=== PATIENT | female | born 1965 | race Caucasian/White ===

== ENCOUNTER 2019-10-25 18:58 | Emergency (ER) | payer BC ==
--- OUTSIDE RECORDS SUMMARY | 2019-10-25 19:03 | XMS REPORT ---
:[address] [facility] Address [address] [place] [address] Care Team Providers Name Role Phone Pat Lopes Unavailable Unavailable PROBLEMS Type Condition ICD9-CM Code [id number] Code Onset Condition SNOMED Code Dates Status Problem Lichen sclerosus L90.0 Active 72050240 et atrophicus Problem Dermatitis, L30.9 Active 272078098 unspecified Problem Family history Z80.41 Active 422837677 of malignant neoplasm of ovary Problem Family history Z80.3 Active 116653652 of malignant neoplasm of breast Problem Unspecified skin R23.9 Active 067824375 changes ALLERGIES No Information ENCOUNTERS Encounter Location Date Diagnosis [address] Apr, [facility] [address] [place] [id number] Mar, [facility] [address] [place] [address] [id number] [facility] Aug, [place] [id number] [facility] Aug, [place] [id number] [address] Aug, Family history of malignant [facility] [address] [place] [address], neoplasm of breast Z80.3 [place] [id number] [facility] Aug, [place] [id number] [address] Aug, Family history of malignant [address]YN [address] [place] [address], neoplasm of breast Z80.3 [place] [id number] [facility] 103 Apr, [place] [id number] [facility] [address] [place] [address] Mar, Lichen sclerosus et OBGYN Road [address] [place], atrophicus L90.[address] [place] [id number] [address] Mar, Encounter for gynecological [address]BGYN [address] [place] [address], examination (general) [place] [id number] (routine) with abnormal findings Z01.411 ; Encounter for screening mammogram for malignant neoplasm of breast Z12.31 ; Encounter for screening for malignant neoplasm of colon Z12.11 ; Family history of malignant neoplasm of breast Z80.3 and Lichen sclerosus et atrophicus L90.[address] Feb, OBGYN [address] [place] [id number] [facility] January, [address] [place] [address] [id number] [facility] 103 Jul, [place] [id number] [facility] 103 Jul, [place] [id number] [facility] 103 Jul, [place] [id number] [facility] Jul, Family history of malignant [address] [place] [address], neoplasm of breast Z80.3 [place] [id number] and Dorsalgia, unspecified M54.[address] Apr, Dermatitis, unspecified OBGYN [address] [place], L30.9 [place] [id number] [place] [facility] [address] [place] [address] Mar, Lichen sclerosus et OBGYN [address] [place], atrophicus L90.0 [place] [id number] [facility] 103 25 May, 2018 [place] [id number] [place] [facility] [address] January, Encounter for gynecological [address]BGYN [address] [place], examination (general) [place] [id number] (routine) with abnormal findings Z01.411 ; Family history of malignant neoplasm of breast Z80.3 ; Lichen sclerosus et atrophicus L90.0 ; Encounter for screening mammogram for malignant neoplasm of breast Z12.31 and Encounter for screening for malignant neoplasm of colon Z12.11 [facility] 103 January, [place] [id number] [facility] [address] [place], [place] [address] Jul, Family history of malignant OBGYN [address] [place] [address], neoplasm of breast Z80.3 [place] [id number] and Lichen sclerosus et atrophicus L90.0 [facility] 103 Jul, Family history of malignant OBGYN [facility] neoplasm of breast Z80.3 [place] [place] [id number] [facility] 103 Mar, [place] [id number] [place] [facility] [address] Mar, Lichen sclerosus et OBGYN Road [address] [place] [address], atrophicus L90.0 [place] [id number] [place] [facility] [address] Feb, Lichen sclerosus et OBGYN Road [address] [place] [address], atrophicus L90.0 and Acute [place] [id number] vulvitis N76.2 [facility] 103 January, [place] [id number] [facility] [address] January, Encounter for gynecological OBGYN [address] [place], examination (general) [place] [id number] (routine) without abnormal findings Z01.419 ; Family history of malignant neoplasm of breast Z80.3 ; Lichen sclerosus et atrophicus L90.0 ; Encounter for screening mammogram for malignant neoplasm of breast Z12.31 ; Family history of malignant neoplasm of ovary Z80.41 and Encounter for screening for malignant neoplasm of colon Z12.11 [place] [facility] [address] [place] [address] [address] Aug, [facility] history of [facility] [address] [place] [address], neoplasm of breast Z80.3 [place] [id number] and Family history of malignant neoplasm of ovary Z80.41 [facility] 103 Jul, [place] [id number] [place] [facility] [address] [place] [address] [facility] Jul, OBGYN [address] [place] [address] [id number] [facility] 103 Jul, [place] [id number] [place] [facility] [address] [place] [address] [address] Jul, Family history of malignant OBN [address] [place] [address], neoplasm of breast Z80.3 [place] [id number] and Family history of malignant neoplasm of ovary Z80.41 [place] [facility] [address] [place] [address] January, Lichen sclerosus et OBGYN Road [address] [place] [address], atrophicus L90.0 [place] [id number] [place] [facility] [address] [place] [address] [facility] January, VULVAR LESION [address] [place] [id number] [facility] 103 Dec, Encounter for gynecological [facility] examination (general) [place], [place] [id number] (routine) with abnormal findings Z01.411 ; Encounter for screening mammogram for malignant neoplasm of breast Z12.31 ; Encounter for screening for malignant neoplasm of colon Z12.11 ; Family history of malignant neoplasm of breast Z80.3 ; Family history of malignant neoplasm of ovary Z80.41 and Unspecified skin changes R23.9 [facility] 103 Nov, [place] [id number] [facility] 103 Aug, [place] [id number] [facility] 103 May, Family history of malignant [facility] neoplasm of breast Z80.3 [place] [place] [id number] 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 OBGYN [address] [place], V72.31 ; FM HX OVARY [place] [id number] MALIGNANCY V16.41 ; FAMILY HX-BREAST MALIG V16.3 ; SCREEN MAMMOGRAM NEC V76.12 and Urgency of urination 788.[address] May, FM HX OVARY MALIGNANCY OBGYN Road [address] [place], V16.41 and FAMILY HX-BREAST [place] [id number] MALIG V16.3 [facility] 103 May, [facility] HX-BREAST [facility] V16.3 [place] [id number] [address] Nov, 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 OBGYN [address] [place], V72.31 ; FM HX OVARY [place] [id number] MALIGNANCY V16.41 ; SCREEN MAMMOGRAM NEC V76.12 and FAMILY HX-BREAST MALIG V16.3 [facility] 103 Aug, FM HX OVARY MALIGNANCY OBGYN [facility] V16.41 and FAMILY HX-BREAST [place], [place] [id number] MALIG V16.[address] Jul, FM HX OVARY MALIGNANCY OBGYN Road [address] [place], V16.41 ; FAMILY HX-BREAST [place] [id number] MALIG V16.3 ; Incontinence 788.30 ; Menometrorrhagia 626.2 and HEMATURIA NOS 599.70 [facility] 103 Jul, [place] [id number] [facility] 103 Jun, FAMILY H[facility]-BREAST [facility]IG [facility] V16.3 [place] [id number] [facility] 103 Jun, [place] [id number] [place] [facility] [address] [facility] Jun, FM HX OVARY MALIGNANCY OBGYN [address] [place], V16.41 ; FAMILY HX-BREAST [place] [id number] MALIG V16.3 ; Incontinence 788.30 ; Menometrorrhagia 626.2 and HEMATURIA NOS 599.70 [facility] 103 May, [place] [id number] [facility] [address] May, [place] [id number] [facility] 103 May, [place] [id number] [facility] 103 May, [place] [id number] [facility] 103 May, [place] [id number] [facility] 103 May, Incontinence 788.30 and [facility] Menometrorrhagia 626.2 [place] [id number] [facility] 103 May, [place] [id number] [place] [facility] [address] [facility] May, Incontinence 788.[address] [place], Menometrorrhagia 626.2 [place] [id number] [facility] 103 May, [place] [id number] [facility] 103 Apr, [place] [id number] [facility] 103 Apr, Incontinence 788.30 and [facility] Menometrorrhagia 626.2 [place], [place] [id number] [facility] 103 Apr, FEM STRESS INCONTINENCE [facility] 625.6 [place], [place] [id number] [facility] 103 Apr, [place] [id number] [place] [facility] [address] [place] [address] Mar, Incontinence 788.[address] [place] [id number] [facility] 103 Mar, [place] [id number] [facility] 103 Mar, Diabetes mellitus type II OBGYN [facility] 250.00 [place], [place] [id number] [facility] 103 Mar, Menometrorrhagia 626.2 ; OBGYN [facility] FAMILY HX-BREAST MALIG [place], [place] [id number] V16.3 and FM HX OVARY MALIGNANCY V16.41 [facility] 103 Mar, [place] [id number] [place] [facility] [address] [place] [address] Feb, Menometrorrhagia 626.2 ; OBGYN Road [address] [place] [address], FAMILY HX-BREAST MALIG [place] [id number] V16.3 and FM HX OVARY MALIGNANCY V16.41 [facility] 103 January, Menometrorrhagia 626.2 [place] [id number] [facility] 103 January, Menometrorrhagia 626.2 [place] [id number] [facility] 103 Dec, [place] [id number] [facility] 103 Dec, [place] [id number] [place] [facility] [address] [place] [address] Dec, Menometrorrhagia 626.2 ; OBGYN Road [address] [place], URINARY INCONTINENCE NOS [place] [id number] 788.30 ; FAMILY HX-BREAST MALIG V16.3 and FM HX OVARY MALIGNANCY V16.41 [facility] 103 08 Dec, 2012 [place] [id number] [facility] 103 Dec, [place] [id number] [address] Dec, Menometrorrhagia [address]26.[address] [place] [address] [id number] [facility] 103 Dec, Menometrorrhagia 626.2 [place] [id number] [facility] 103 Dec, Menometrorrhagia 626.2 ; FM OBGYN [facility] HX OVARY MALIGNANCY V16.41 [place], [place] [id number] and IUD SURVEILLANCE V25.[address] Nov, 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 EXAMINATION OBGYN Road [address] [place] [address], V72.31 ; Menometrorrhagia [place] [id number] 626.2 ; PAP SMEAR W/O ORGANIC CHEMISTRY TEACHER EXAM V76.2 ; SCREEN MAMMOGRAM NEC V76.12 ; FAMILY HX-BREAST MALIG V16.3 ; FM HX OVARY MALIGNANCY V16.41 and URINARY INCONTINENCE NOS 788.[address] Dec, FM HX OVARY MALIGNANCY OBGYN Road [address] [place], V16.41 and FAMILY HX-BREAST [place] [id number] MALIG V16.[address] Sep, FM HX OVARY MALIGNANCY OBGYN Road [address] [place], V16.41 and FAMILY HX-BREAST [place] [id number] MALIG V16.3 [facility] 103 Sep, [place] [id number] [facility] 103 Aug, FM HX OVARY MALIGNANCY OBGYN [facility] V16.41 and FAMILY HX-BREAST [place], [place] [id number] MALIG V16.3 IMMUNIZATIONS No Known Immunizations SOCIAL HISTORY Never Assessed REASON FOR REFERRAL FUNCTIONAL STATUS PLAN OF CARE VITAL SIGNS MEDICATIONS Unknown Medications PROCEDURES No Known procedures RESULTS No Results REASON FOR VISIT No show Insurance Providers [facility] Member Patient Patient Patient Patient Patient Subscriber Subscriber Subscriber Group Insurance Plan Plan Plan Plan ID Relationship Address Phone Name Date of ID Name Date of No Type Insurance Insurance Insurance Coverage to Subscriber Address Phone Name Dates Blue [phone] Blue self Susan [id number] Cross/Blue [id number] 16 Cross/Blue [place] [employer] [place] [facility] [place] [address] Blue Cross [phone] Blue Cross self Susan 1965 [id number] Blue [id number] 89 Blue [place] [employer] [place] [facility] [place] [address] Excellus [phone] Excellus self Susan 1965 [id number] Blue [id number] 89 Blue [place] Cross/Blue ods Shield [address] Shield Excellus [phone] Excellus self Susan 1965 [id number] Blue [id number] 89 Blue [place] Cross/[place] o[place] Shield [address] Shield [employer] [phone] Excellus self Susan 1965 [id number] Blue [id number] 89 Blue [place] Cross/Blue o[place] Shield [address] Shield MEDICAL (GENERAL) HISTORY Type Description Date Medical History Asthma Medical History DM2 Medical History Sleep apnea Medical History Lichen sclerosis Medical History hypothyroidism Medical History Anemia Medical History anxiety Medical History depression Medical History Peripheral atopic dermatitis Surgical History in office hysteroscopy, EMB 01/2013 Surgical History LTH/BSO/cystoscopy/ [facility] TOT 06/17/13 Surgical History colonoscopy 01/2015 Hospitalization History Childbirth 1993,1996,1997
--- OUTSIDE RECORDS SUMMARY | 2019-10-25 19:03 | XMS REPORT ---
:[address] [facility] Address [address] [place] [address] Care Team Providers Name Role Phone Pat Lopes Unavailable Unavailable PROBLEMS Type Condition ICD9-CM Code FEM19-DI Code Onset Condition SNOMED Code Dates Status Problem Lichen sclerosus L90.0 Active 59475608 et atrophicus Problem Dermatitis, L30.9 Active 796723987 unspecified Problem Family history Z80.41 Active [id number] of malignant neoplasm of ovary Problem Family history Z80.3 Active [id number] of malignant neoplasm of breast Problem Unspecified skin R23.9 Active [id number] changes ALLERGIES No Information ENCOUNTERS Encounter Location Date Diagnosis [address] Apr, [facility] [address] [place] [id number] Mar, [facility] [address] [place] [address] [id number] [facility] Aug, [place] [id number] [facility] Aug, [place] [id number] [address] Aug, Family history of malignant [facility] [address] [place] [address], neoplasm of breast Z80.3 [place] [id number] [facility] Aug, [place] [id number] [address] Aug, Family history of malignant OBGYN [address] [place] [address], neoplasm of breast Z80.3 [place] [id number] [facility] 103 Apr, [place] [id number] [facility] [address] [place] [address] Mar, Lichen sclerosus et OBGYN Road [address] [place], atrophicus L90.0 [place] [id number] [address] Mar, Encounter for gynecological OBGYN [address] [place] [address], examination (general) [place] [id number] (routine) with abnormal findings Z01.411 ; Encounter for screening mammogram for malignant neoplasm of breast Z12.31 ; Encounter for screening for malignant neoplasm of colon Z12.11 ; Family history of malignant neoplasm of breast Z80.3 and Lichen sclerosus et atrophicus L90.[address] Feb, OBGYN [address] [place] [address] [id number] [facility] January, OBGYN Road [address] [place] [address] [id number] [facility] 103 Jul, [place] [id number] [place] 103 Jul, [place] [id number] [facility] 103 Jul, [place] [id number] [facility] Jul, Family history of malignant OBGYN [address] [place] [address], neoplasm of breast Z80.3 [place] [id number] and Dorsalgia, unspecified M54.[address] Apr, Dermatitis, unspecified OBGYN [address] [place], L30.9 [place] [id number] [place] [facility] [address] [place] [address] Mar, Lichen sclerosus et OBGYN Road [address] [place], atrophicus L90.0 [place] [id number] [place] [facility] 103 25 May, 2018 [place]BG[place] [id number] [place] [facility] [address] January, Encounter for gynecological OBGYN [address] [place], examination (general) [place] [id number] (routine) with abnormal findings Z01.411 ; Family history of malignant neoplasm of breast Z80.3 ; Lichen sclerosus et atrophicus L90.0 ; Encounter for screening mammogram for malignant neoplasm of breast Z12.31 and Encounter for screening for malignant neoplasm of colon Z12.[address] [facility] 103 January, [place]BG[place] [id number] [facility] [address] [place], [place] [address] Jul, Family history of malignant OBGYN [address] [place] [address], neoplasm of breast Z80.3 [place] [id number] and Lichen sclerosus et atrophicus L90.0 [place] [facility] Jul, Family history of malignant OBGYN [facility] neoplasm of breast Z80.[address] [place] [id number] [facility] 103 Mar, [place] [id number] [place] [facility] [address] Mar, Lichen sclerosus et OBGYN Road [address] [place] [address], atrophicus L90.0 [place] [id number] [place] [facility] [address] Feb, Lichen sclerosus et OBGYN Road [address] [place] [address], atrophicus L90.0 and Acute [place] [id number] vulvitis N76.[address] [facility] 103 January, [place] [id number] [facility] [address] January, Encounter for gynecological OBGYN [address] [place], examination (general) [place] [id number] (routine) without abnormal findings Z01.419 ; Family history of malignant neoplasm of breast Z80.3 ; Lichen sclerosus et atrophicus L90.0 ; Encounter for screening mammogram for malignant neoplasm of breast Z12.31 ; Family history of malignant neoplasm of ovary Z80.41 and Encounter for screening for malignant neoplasm of colon Z12.11 [place] [facility] [address] [place] [address] [place] Aug, Family history of malignant [facility] [address] [place] [address], neoplasm of breast Z80.3 [place] [id number] and Family history of malignant neoplasm of ovary Z80.41 [facility] 103 Jul, OBG[place] [id number] [place] [facility] [address] [place] [address] [facility] Jul, OBGYN Road [address] [place] [address] [id number] [facility] 103 Jul, [place] [id number] [place] [facility] [address] [place] [address] [place] Jul, Family history of malignant OBN Road [address] [place] [address], neoplasm of breast Z80.3 [place] [id number] and Family history of malignant neoplasm of ovary Z80.41 [place] [facility] [address] [place] [address] January, Lichen sclerosus et OBGYN Road [address] [place] [address], atrophicus L90.0 [place] [id number] [place] [facility] [address] [place] [address] [facility] January, VULVAR LESION [address] [place] [id number] [facility] 103 Dec, Encounter for gynecological [facility] examination (general) [place], [place] [id number] (routine) with abnormal findings Z01.411 ; Encounter for screening mammogram for malignant neoplasm of breast Z12.31 ; Encounter for screening for malignant neoplasm of colon Z12.11 ; Family history of malignant neoplasm of breast Z80.3 ; Family history of malignant neoplasm of ovary Z80.41 and Unspecified skin changes R23.9 [facility] 103 Nov, [place] [id number] [place] [facility] 103 Aug, [place] [id number] [facility] 103 May, Family history of malignant [facility] neoplasm of breast Z80.3 [place] [id number] [facility] May, FM HX OVARY MALIGNANCY OBGYN Road [address] [place], V16.41 and FAMILY HX-BREAST [place] [id number] MALIG V16.[address] Nov, 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 OBGYN [address] [place], V72.31 ; FM HX OVARY [place] [id number] MALIGNANCY V16.41 ; FAMILY HX-BREAST MALIG V16.3 ; SCREEN MAMMOGRAM NEC V76.12 and Urgency of urination 788.[address] May, FM HX OVARY MALIGNANCY OBGYN Road [address] [place], V16.41 and FAMILY HX-BREAST [place] [id number] MALIG V16.3 [facility] 103 May, FAMILY HX-BREAST MALIG [facility] V16.3 [place] [id number] [address] Nov, 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 OBGYN Road [address] [place], V72.31 ; FM HX OVARY [place] [id number] MALIGNANCY V16.41 ; SCREEN MAMMOGRAM NEC V76.12 and FAMILY HX-BREAST MALIG V16.3 [facility] O[facility]YN 103 Aug, FM HX OVARY MALIGNANCY OBGYN [facility] V16.41 and FAMILY HX-BREAST [place], [place] [id number] MALIG V16.[address] Jul, FM HX OVARY MALIGNANCY OBGYN Road [address] [place], V16.41 ; FAMILY HX-BREAST [place] [id number] MALIG V16.3 ; Incontinence 788.30 ; Menometrorrhagia 626.2 and HEMATURIA NOS 599.70 [facility] 103 Jul, [place] [id number] [facility] 103 Jun, FAMILY HX-BREAST [facility]IG [facility] V16.3 [place] [id number] [facility] 103 Jun, [place] [id number] [place] [facility] [address] [facility] Jun, FM HX OVARY MALIGNANCY OBGYN Road [address] [place], V16.41 ; FAMILY HX-BREAST [place] [id number] MALIG V16.3 ; Incontinence 788.30 ; Menometrorrhagia 626.2 and HEMATURIA NOS 599.70 [place] [facility] 103 May, [place] [id number] [facility] [address] May, [place], [place] [id number] [place] [facility] 103 May, [place] [id number] [place] [facility] 103 May, [place] [id number] [place] [facility] 103 May, [place] [id number] [place] [facility] 103 May, Incontinence 788.30 and [facility] Menometrorrhagia 626.2 [place] [id number] [place] [facility] 103 May, [place] [id number] [place] [facility] [address] [facility] May, Incontinence [address]88.[address] [place], Menometrorrhagia 626.2 [place] [id number] [place] [facility] 103 May, [place] [id number] [place] [facility] 103 Apr, [place] [id number] [place] [facility] 103 Apr, Incontinence 788.30 and [facility] Menometrorrhagia 626.2 [place] [id number] [place] [facility] 103 Apr, FEM STRESS INCONTINENCE [facility] 625.6 [place] [id number] [place] [facility] 103 Apr, [place] [id number] [place] [facility] [address] [place] [address] Mar, Incontinence [address]88.[address] [place] [id number] [place] [facility] 103 Mar, [place] [id number] [place] [facility] 103 Mar, Diabetes mellitus type II OBGYN [facility] 250.00 [place] [id number] [place] [facility] 103 Mar, Menometrorrhagia 626.2 ; OBGYN [facility] FAMILY HX-BREAST MALIG [place] [id number] V16.3 and FM HX OVARY MALIGNANCY V16.41 [place] [facility] 103 Mar, [place] [id number] [place] [facility] [address] [place] [address] Feb, Menometrorrhagia 626.2 ; OBGYN Road [address] [place] [address], FAMILY HX-BREAST MALIG [place] [id number] V16.3 and FM HX OVARY MALIGNANCY V16.41 [place] [facility] 103 January, Menometrorrhagia 626.2 O[place] [id number] [place] [facility] 103 January, Menometrorrhagia 626.2 [place] [id number] [place] [facility] 103 Dec, [place] [id number] [place] [facility] 103 Dec, [place] [id number] [place] [facility] [address] [place] [address] Dec, Menometrorrhagia 626.2 ; OBGYN [address] [place], URINARY INCONTINENCE NOS [place] [id number] 788.30 ; FAMILY HX-BREAST MALIG V16.3 and FM HX OVARY MALIGNANCY V16.41 [facility] O[facility]YN 103 08 Dec, 2012 [place] [id number] [facility] 103 Dec, OBG[place] [id number] [address] Dec, Menometrorrhagia [address] [place] [address] [id number] [facility] 103 Dec, Menometrorrhagia 626.2 OBGYN [place] [id number] [facility] 103 Dec, Menometrorrhagia 626.2 ; FM OBGYN [facility] HX OVARY MALIGNANCY V16.41 [place], [place] [id number] and IUD SURVEILLANCE V25.[address] Nov, 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 OBGYN Road [address] [place] [address], V72.31 ; Menometrorrhagia [place] [id number] 626.2 ; PAP SMEAR W/O PHOTOVOLTAIC POWER SYSTEMS ENGINEER EXAM V76.2 ; SCREEN MAMMOGRAM NEC V76.12 ; FAMILY HX-BREAST MALIG V16.3 ; FM HX OVARY MALIGNANCY V16.41 and URINARY INCONTINENCE NOS 788.[address] Dec, FM HX OVARY MALIGNANCY OBGYN Road [address] [place], V16.41 and FAMILY HX-BREAST [place] [id number] MALIG V16.[address] Sep, FM HX OVARY MALIGNANCY OBGYN Road [address] [place], V16.41 and FAMILY HX-BREAST [place] [id number] MALIG V16.3 [facility] 103 Sep, O[place] [id number] [facility] 103 Aug, FM HX OVARY MALIGNANCY OBGYN [facility] V16.41 and FAMILY HX-BREAST [place], [place] [id number] MALIG V16.3 IMMUNIZATIONS No Known Immunizations SOCIAL HISTORY Never Assessed REASON FOR REFERRAL FUNCTIONAL STATUS PLAN OF CARE VITAL SIGNS MEDICATIONS Unknown Medications PROCEDURES No Known procedures RESULTS No Results REASON FOR VISIT n/s to appt. - Could not leave message 08/27/2019 Insurance Providers [facility] Member Patient Patient Patient Patient Patient Subscriber Subscriber Subscriber Group Insurance Plan Plan Plan Plan ID Relationship Address Phone Name Date of ID Name Date of No Type Insurance Insurance Insurance Coverage to Subscriber Address Phone Name Dates Excell[employer] [phone] Excellus self Susan 1965 [id number] Blue [id number] 89 [place] Shield [id number] Shield Excellus [phone] Excell[employer] self Susan 1965 [id number] Blue [id number] 89 [place] Cross/[place] Shield 73752 Shield Excellus [phone] [employer] self Susan 1965 [id number] Blue [id number] 89 [place] Shield [address] Shield Blue [phone] Blue self Susan [id number] Cross/Blue 15502 16 Cross/Blue [place] 3 Shield [facility] [address] Blue Cross [phone] Blue Cross self Susan [id number] Blue 38838 89 Blue [place] 9 Shield [facility] [place] [address] MEDICAL (GENERAL) HISTORY Type Description Date Medical [...]
--- OUTSIDE RECORDS SUMMARY | 2019-10-25 19:03 | XMS REPORT ---
:1965 Author Name Chastity Campos Address [address] [place] [address] Care Team Providers Name Role Phone Chastity Campos Unavailable Unavailable PROBLEMS Type Condition ICD9-CM Code XPI98-[id number] Code Onset Condition SNOMED Code Dates Status Problem Lichen sclerosus L90.0 Active 66762238 et atrophicus Problem Dermatitis, L30.9 Active 891806622 unspecified Problem Family history Z80.41 Active 985866706 of malignant neoplasm of ovary Problem Family history Z80.3 Active 541587702 of malignant neoplasm of breast Problem Unspecified skin R23.9 Active 700067546 changes ALLERGIES No Known Allergies ENCOUNTERS Encounter Location Date Diagnosis [address] Apr, [facility] [address] [place] [id number] Mar, [facility] [address] [place] [address] [id number] [facility] Aug, OBG[place] [id number] [facility] 103 Aug, OBGYN [place], [place] [id number] [address] Aug, Family history of malignant [facility] [address] [place] [address], neoplasm of breast Z80.3 [place] [id number] [facility] Aug, OBG[place] [id number] [address] Aug, Family history of malignant [address]BGYN [address] [place] [address], neoplasm of breast Z80.3 [place] [id number] [facility] Apr, [place] [id number] [facility] [address] [place] [address] Mar, Lichen sclerosus et OBGYN Road [address] [place] [address], atrophicus L90.0 [place] [id number] [address] Mar, Encounter for gynecological OBGYN [address] [place] [address], examination (general) [place] [id number] (routine) with abnormal findings Z01.411 ; Encounter for screening mammogram for malignant neoplasm of breast Z12.31 ; Encounter for screening for malignant neoplasm of colon Z12.11 ; Family history of malignant neoplasm of breast Z80.3 and Lichen sclerosus et atrophicus L90.[address] Feb, OBGYN [address] [place] [id number] [facility] January, [address] [place] [address] [id number] [facility] Jul[place] [id number] [facility] 103 Jul[place] [id number] [facility] Jul, [place] [id number] [facility] Jul, Family history of malignant [address]BGYN [address] [place] [address], neoplasm of breast Z80.3 [place] [id number] and Dorsalgia, unspecified M54.[address] [facility] Apr, Dermatitis, unspecified [address] [place], L30.9 [place] [id number] [facility] [address] [place] [address] Mar, Lichen sclerosus et OBGYN Road [address] [place] [address], atrophicus L90.0 [place] [id number] [facility] January, OBG[place] [id number] [place] [facility] [address] January, Encounter for gynecological [address]BGYN [address] [place] [address], examination (general) [place] [id number] (routine) with abnormal findings Z01.411 ; Family history of malignant neoplasm of breast Z80.3 ; Lichen sclerosus et atrophicus L90.0 ; Encounter for screening mammogram for malignant neoplasm of breast Z12.31 and Encounter for screening for malignant neoplasm of colon Z12.11 [facility] January, OBGYN [place] [id number] [place] [facility] [address] [place], [place] [address]er Jul, Family history of malignant OBGYN [address] [place] [address], neoplasm of breast Z80.3 [place] [id number] and Lichen sclerosus et atrophicus L90.0 [facility] 103 Jul, Family history of malignant OBGYN [facility] neoplasm of breast Z80.3 [place], [place] [id number] [facility] Mar, OBG[place], [place] [id number] [facility] [facility] [address] Mar, Lichen sclerosus et OBGYN Road [address] [place] [address], atrophicus L90.0 [place] [id number] [place] [facility] [address] Feb, Lichen sclerosus et OBGYN Road [address] [place] [address], atrophicus L90.0 and Acute [place] [id number] vulvitis N76.2 [facility] January, [place]BG[place] [id number] [facility] [address] January, Encounter for gynecological OBGYN [address] [place], examination (general) [place] [id number] (routine) without abnormal findings Z01.419 ; Family history of malignant neoplasm of breast Z80.3 ; Lichen sclerosus et atrophicus L90.0 ; Encounter for screening mammogram for malignant neoplasm of breast Z12.31 ; Family history of malignant neoplasm of ovary Z80.41 and Encounter for screening for malignant neoplasm of colon Z12.11 [place] [facility] [address] [place] [address] [facility] Aug, [facility] [address] [place] [address], neoplasm of breast Z80.3 [place] [id number] and Family history of malignant neoplasm of ovary Z80.41 [facility] Jul, OBG[place] [id number] [place] [facility] [address] [place], [place] [address] Jul, OBGYN Road [address] [place] [address] [id number] [facility] Jul, [place] [id number] [place] [facility] [address] [place], [place] [address]er Jul, Family history of malignant OBN [address] [place] [address], neoplasm of breast Z80.3 [place] [id number] and Family history of malignant neoplasm of ovary Z80.41 [place] [facility] [address] [place] [address] January, Lichen sclerosus et OBGYN Road [address] [place] [address], atrophicus L90.0 [place] [id number] [place] [facility] [address] [place], [place] [address]er January, VULVAR LESION [address] [place] [address] [id number] [facility] 103 Dec, Encounter for gynecological [facility] examination (general) [place], [place] [id number] (routine) with abnormal findings Z01.411 ; Encounter for screening mammogram for malignant neoplasm of breast Z12.31 ; Encounter for screening for malignant neoplasm of colon Z12.11 ; Family history of malignant neoplasm of breast Z80.3 ; Family history of malignant neoplasm of ovary Z80.41 and Unspecified skin changes R23.9 [facility] Nov, [place] [id number] [facility] Aug, [place] [id number] [facility] 103 May, Family history of malignant [facility] neoplasm of breast Z80.3 [place] [id number] [address] May, FM HX OVARY MALIGNANCY OBGYN Road [address] [place], V16.41 and FAMILY HX-BREAST [place] [id number] MALIG V16.[address] Nov, 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 BUSHING PRESS 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 EXAMINATION [address]BGYN [address] [place], V72.31 ; FM HX OVARY [place] [id number] MALIGNANCY V16.41 ; FAMILY HX-BREAST MALIG V16.3 ; SCREEN MAMMOGRAM NEC V76.12 and Urgency of urination 788.[address] May, FM HX OVARY MALIGNANCY OBGYN Road [address] [place], V16.41 and FAMILY HX-BREAST [place] [id number] MALIG V16.3 [facility] 103 May, FAMILY HX-BREAST [facility]IG [facility] V16.3 [place], [place] [id number] [address] Nov, ROUTINE BUSHING PRESS OPERATOR EXAMINATION OBGYN [address] [place], V72.31 ; FM HX OVARY [place] [id number] MALIGNANCY V16.41 ; SCREEN MAMMOGRAM NEC V76.12 and FAMILY HX-BREAST MALIG V16.3 [facility] 103 Aug, FM HX OVARY MALIGNANCY OBGYN [facility] V16.41 and FAMILY HX-BREAST [place], [place] [id number] MALIG V16.[address] Jul, FM HX OVARY MALIGNANCY OBGYN Road [address] [place], V16.41 ; FAMILY HX-BREAST [place] [id number] MALIG V16.3 ; Incontinence 788.30 ; Menometrorrhagia 626.[address] [facility] 103 Jul, [place] [id number] [facility] 103 Jun, FAMILY HX-BREAST MALIG [facility] V16.3 [place] [id number] [facility] 103 Jun, [place] [id number] [place] [facility] [address] Jun, FM HX OVARY MALIGNANCY OBGYN Road [address] [place], V16.41 ; FAMILY HX-BREAST [place] [id number] MALIG V16.3 ; Incontinence 788.30 ; Menometrorrhagia 626.2 and HEMATURIA NOS 599.70 [facility] May, [place] [id number] [facility] [address] May, [place] [id number] [facility] May, [place] [id number] [facility] May, [place] [id number] [facility] May, [place] [id number] [facility] 103 May, Incontinence 788.30 [facility] Menometrorrhagia 626.2 [place] [id number] [facility] 103 May, [place] [id number] [place] [facility] [address] [facility] May, Incontinence [address]88.[address] [place], Menometrorrhagia 626.2 [place] [id number] [facility] 103 May, [place] [id number] [facility] 103 Apr, [place] [id number] [facility] 103 Apr, Incontinence 788.30 and [facility] Menometrorrhagia 626.2 [place], [place] [id number] [facility] 103 Apr, FEM STRESS INCONTINENCE [facility] 625.6 [place] [id number] [facility] Apr, [place] [id number] [place] [facility] [address] [place] [address] Mar, Incontinence [address]88.[address] [place], [place] [id number] [facility] 103 Mar, [place] [id number] [facility] 103 Mar, Diabetes mellitus type II OBN [facility] 250.00 [place] [id number] [facility] 103 Mar, Menometrorrhagia 626.2 ; OBGYN [facility] FAMILY HX-BREAST MALIG [place], [place] [id number] V16.3 and FM HX OVARY MALIGNANCY V16.41 [facility] 103 Mar, [place] [id number] [facility] [facility] [address] [place] [address] Feb, Menometrorrhagia 626.2 ; OBGY Road [address] [place] [address], FAMILY HX-BREAST MALIG W[place] [id number] V16.3 and FM HX OVARY MALIGNANCY V16.41 [facility] 103 January, Menometrorrhagia 626.2 [place] [id number] [facility] 103 January, Menometrorrhagia 626.2 [place] [id number] [facility] 103 Dec, [place], [place] [id number] [facility] Dec, [place], [place] [id number] [place] [facility] [address] [place] [address] Dec, Menometrorrhagia 626.2 ; OBGYN [address] [place], URINARY INCONTINENCE NOS [place] [id number] 788.30 ; FAMILY HX-BREAST MALIG V16.3 and FM HX OVARY MALIGNANCY V16.41 [facility] O[facility]YN 103 08 Dec, 2012 OBG[place] [id number] [facility] 103 Dec, OBG[place] [id number] [address] Dec, Menometrorrhagia [address] [place] [address] [id number] [facility] 103 Dec, Menometrorrhagia 626.2 O[place], [place] [id number] [facility] 103 Dec, Menometrorrhagia 626.2 ; FM OBGYN [facility] HX OVARY MALIGNANCY V16.41 [place], [place] [id number] and IUD SURVEILLANCE V25.[address] Nov, ROUTINE BUSHING PRESS OPERATOR EXAMINATION OBGYN Road [address] [place] [address], V72.31 ; Menometrorrhagia [place] [id number] 626.2 ; PAP SMEAR W/O BUSHING PRESS OPERATOR EXAM V76.2 ; SCREEN MAMMOGRAM NEC V76.12 ; FAMILY HX-BREAST MALIG V16.3 ; FM HX OVARY MALIGNANCY V16.41 and URINARY INCONTINENCE NOS 788.[address] Dec, FM HX OVARY MALIGNANCY OBGYN Road [address] [place], V16.41 and FAMILY HX-BREAST [place] [id number] MALIG V16.[address] Sep, FM HX OVARY MALIGNANCY OBGYN Road [address] [place], V16.41 and FAMILY HX-BREAST [place] [id number] MALIG V16.3 [facility] 103 Sep, OBG[place], [place] [id number] [facility] 103 Aug, FM HX OVARY MALIGNANCY OBGYN [facility] V16.41 and FAMILY HX-BREAST [place], [place] [id number] MALIG V16.3 IMMUNIZATIONS No Known Immunizations SOCIAL HISTORY Never Assessed REASON FOR REFERRAL FUNCTIONAL STATUS PLAN OF CARE Activity Details Follow Up annual in March Reason: VITAL SIGNS Height 63.5 in 2019-09-03 Weight 202 lbs 2019-09-03 BMI 35.22 kg/m2 2019-09-03 Blood pressure systolic 138 mm Hg 2019-09-03 Blood pressure diastolic 84 mm Hg 2019-09-03 MEDICATIONS Medication Instructions Dosage Frequency Start End Duration Status Date Date clobetasol applied 1 jossy 90 days Active topical 0.05% topically once weekly biotin 10 mg orally once a 1 tab(s) 24h 30 day(s) Active day Probiotic Formula orally once a 1 cap(s) 24h Active - day Zyrtec 10 mg Oral qd 1 tab 24h 30 days Active multivitamin orally once a 1 tab(s) 24h Active Multiple Vitamins day sertraline 50 mg orally once a 3 tab(s) 24h Active day CPAP mask Active Vitamin B-12 500 orally 1 QD Active mg Vitamin D3 1000 orally once a 1 tab(s) 24h Active intl units day levothyroxine 25 orally once a 1 tab(s) 24h Active mcg (0.025 mg) day Metformin 500 mg Oral bid 1 tab 12h 30 days Active PROCEDURES No Known procedures RESULTS No Results REASON FOR VISIT 6 month CBE Insurance Providers Formerly [facility] Patient Patient Patient Patient Patient Subscriber Subscriber Subscriber Group Insurance Plan Plan Plan Plan ID Relationship Address Phone Name Date of ID Name Date of No Type Insurance Insurance Insurance Coverage to Subscriber Address Phone Name Dates [address]us [address] Excellus self Susan 1965 [id number] Blue [id number] 89 [place] Shield [address] Shield Blue [address] - Blue self Susan 1965 [id number] Cross/Blue [id number] 16 Cross/Blue [place] [address] Excellus [address] Excellus self Susan 1965 [id number] Blue 08190 89 Blue [place] 2 [place] Shield [address] Shield Excellus [address] Excellus self Susan 1965 [id number] Blue [id number] 89 Blue [place] 9 [place] Shield [address] Shield Blue Cross [phone] Blue Cross self Susan [id number] Blue 31943 89 Blue [place] 9 [facility] [address] MEDICAL (GENERAL) HISTORY Type Description Date Medical [...]
--- OUTSIDE RECORDS SUMMARY | 2019-10-25 19:03 | XMS REPORT ---
:[address] [facility] OBGYN Address [address] [place] [address] Care Team Providers Name Role Phone Pat Lopes Unavailable Unavailable PROBLEMS Type Condition ICD9-CM Code [id number] Code Onset Condition SNOMED Code Dates Status Problem Lichen sclerosus L90.0 Active 00439686 et atrophicus Problem Dermatitis, L30.9 Active 189134133 unspecified Problem Family history Z80.41 Active 030627161 of malignant neoplasm of ovary Problem Family history Z80.3 Active [id number] of malignant neoplasm of breast Problem Unspecified skin R23.9 Active [id number] changes ALLERGIES No Information ENCOUNTERS Encounter Location Date Diagnosis [address] Apr, [facility] [address] [place] [id number] Mar, [facility] [address] [place] [id number] [facility] 103 Aug, Family history of malignant OBGYN [facility] neoplasm of breast Z80.3 [place], [place] [id number] [facility] 103 Aug, OBGYN [place] [id number] [address] Aug, Family history of malignant OBGYN Road [address] [place] [address], neoplasm of breast Z80.[address] [place] [id number] [facility] Aug, O[place] [id number] [facility] [address] [place] [address] Aug, Family history of malignant OBGYN Road [address] [place] [address], neoplasm of breast Z80.[address] [place] [id number] [facility] 103 Apr, [place] [id number] [facility] [address] [place], [place] [address] Mar, Lichen sclerosus et OBGYN Road [address] [place] [address], atrophicus L90.0 [place] [id number] [place] [facility] [address] [place] [address] Mar, Encounter for gynecological OBGYN Road [address] [place] [address], examination (general) [place] [id number] (routine) with abnormal findings Z01.411 ; Encounter for screening mammogram for malignant neoplasm of breast Z12.31 ; Encounter for screening for malignant neoplasm of colon Z12.11 ; Family history of malignant neoplasm of breast Z80.3 and Lichen sclerosus et atrophicus L90.0 [facility] [address] [place] [address] [facility] Feb, OBGYN Road [address] [place] [id number] [facility] January, [address] [place] [id number] [facility] 103 12 Jul, 2018 [place], [place] [id number] [facility] 103 Jul, [place] [id number] [facility] 103 Jul, [place] [id number] [facility] Jul, Family history of malignant OBGYN [address] [place] [address], neoplasm of breast Z80.3 [place] [id number] and Dorsalgia, unspecified M54.9 [facility] Apr, Dermatitis, unspecified OBGYN [address] [place], L30.9 [place] [id number] [facility] Mar, Lichen sclerosus et OBGYN Road [address] [place] [address], atrophicus L90.[address] [place] [id number] [facility] 103 January, OBGYN [place] [id number] [place] [facility] [address] [facility] January, Encounter for gynecological OBGYN Road [address] [place] [address], examination (general) [place] [id number] (routine) with abnormal findings Z01.411 ; Family history of malignant neoplasm of breast Z80.3 ; Lichen sclerosus et atrophicus L90.0 ; Encounter for screening mammogram for malignant neoplasm of breast Z12.31 and Encounter for screening for malignant neoplasm of colon Z12.11 [place] [facility] 103 January, OBGYN [place] [id number] [facility] Jul, Family history of malignant OBGYN Road [address] [place] [address], neoplasm of breast Z80.3 [place] [id number] and Lichen sclerosus et atrophicus L90.0 [place] [facility] 103 Jul, Family history of malignant OBGYN [facility] neoplasm of breast Z80.3 [place], [place] [id number] [facility] 103 Mar, OBGYN [place] [id number] [facility] [address] [facility] Mar, Lichen sclerosus et OBGYN Road [address] [place] [address], atrophicus L90.0 [place] [id number] [place] [address] [facility] Feb, Lichen sclerosus et OBGYN Road [address] [place] [address], atrophicus L90.0 and Acute [place] [id number] vulvitis N76.2 [facility] [facility] 103 January, OBG[place] [id number] [place] [facility] [address] [facility] January, Encounter for gynecological OBGYN [address] [place], examination (general) [place] [id number] (routine) without abnormal findings Z01.419 ; Family history of malignant neoplasm of breast Z80.3 ; Lichen sclerosus et atrophicus L90.0 ; Encounter for screening mammogram for malignant neoplasm of breast Z12.31 ; Family history of malignant neoplasm of ovary Z80.41 and Encounter for screening for malignant neoplasm of colon Z12.11 [place] [facility] 15 Aug, 2016 Family history of malignant [facility] [address] [place] [address], neoplasm of breast Z80.3 [place] [id number] and Family history of malignant neoplasm of ovary Z80.[address] [facility] 103 Jul, [place] [id number] [facility] [facility] Jul, OBGYN Road [address] [place] [id number] [facility] 103 Jul, [place] [id number] [facility] [address] Jul, Family history of malignant [facility] [address] [place] [address], neoplasm of breast Z80.3 [place] [id number] and Family history of malignant neoplasm of ovary Z80.41 [facility] [address] January, Lichen sclerosus et [facility] [address] [place] [address], atrophicus L90.0 [place] [id number] [place] [facility] [address] [place] [address] [facility] January, VULVAR LESION 624.9 [facility] [address] [place] [id number] [facility] 103 Dec, Encounter for gynecological [facility] examination (general) [place], [place] [id number] (routine) with abnormal findings Z01.411 ; Encounter for screening mammogram for malignant neoplasm of breast Z12.31 ; Encounter for screening for malignant neoplasm of colon Z12.11 ; Family history of malignant neoplasm of breast Z80.3 ; Family history of malignant neoplasm of ovary Z80.41 and Unspecified skin changes R23.[address] [facility] 103 Nov, [place] [id number] [facility] 103 Aug, [place] [id number] [facility] 103 May, Family history of malignant [facility] neoplasm of breast Z80.3 [place], [place] [id number] [address] May, FM HX OVARY MALIGNANCY OBGYN Road [address] [place], V16.41 and FAMILY HX-BREAST [place] [id number] MALIG V16.[address] Nov, ROUTINE MENTAL TELEPATHIST EXAMINATION OBGYN Road [address] [place], V72.31 ; FM HX OVARY [place] [id number] MALIGNANCY V16.41 ; FAMILY HX-BREAST MALIG V16.3 ; SCREEN MAMMOGRAM NEC V76.12 and Urgency of urination 788.[address] May, FM HX OVARY MALIGNANCY OBGYN Road [address] [place], V16.41 and FAMILY HX-BREAST [place] [id number] MALIG V16.3 [facility] 103 May, FAMILY HX-BREAST [facility]IG [facility] V16.3 [place], [place] [id number] [address] Nov, ROUTINE MENTAL TELEPATHIST EXAMINATION OBGYN Road [address] [place], V72.31 ; FM HX OVARY [place] [id number] MALIGNANCY V16.41 ; SCREEN MAMMOGRAM NEC V76.12 and FAMILY HX-BREAST MALIG V16.3 [facility] 103 Aug, FM HX OVARY MALIGNANCY OBN [facility] V16.41 and FAMILY HX-BREAST [place], [place] [id number] MALIG V16.[address] Jul, FM HX OVARY MALIGNANCY OBGYN Road [address] [place], V16.41 ; FAMILY HX-BREAST [place] [id number] MALIG V16.3 ; Incontinence 788.30 ; Menometrorrhagia 626.2 and HEMATURIA NOS [address] [facility] 103 05 Jul, 2013 [place] [id number] [facility] 103 Jun, FAMILY HX-BREAST MALIG [facility] V16.3 [place] [id number] [facility] [facility] 103 10 Jun, 2013 [place] [id number] [place] [facility] [address] [facility] 10 Jun, 2013 FM HX OVARY MALIGNANCY [facility] [address] [place], V16.41 ; FAMILY HX-BREAST [place] [id number] MALIG V16.3 ; Incontinence 788.30 ; Menometrorrhagia 626.2 and HEMATURIA NOS 599.70 [place] [facility] 103 May, [place] [id number] [facility] [address] May, [place] [id number] [facility] 103 May, [place] [id number] [facility] [facility] 103 May, OBN [place] [id number] [facility] 103 May, [place] [id number] [facility] 103 May, Incontinence 788.30 and [facility] Menometrorrhagia 626.2 [place] [id number] [facility] 103 May, OBN [place] [id number] [facility] [facility] [address] [facility] May, Incontinence 788.30 and [facility] [address] [place] [address], Menometrorrhagia 626.2 [place] [id number] [facility] [facility] 103 May, OBN [place] [id number] [facility] 103 Apr, OBGYN [place] [id number] [facility] 103 Apr, Incontinence 788.30 and [facility] Menometrorrhagia 626.2 [place] [id number] [facility] 103 Apr, FEM STRESS INCONTINENCE OBGYN [place] [address].6 [place], [place] [id number] [facility] 103 Apr, OBGYN [place] [id number] [facility] [address] [facility] Mar, Incontinence [address]88.[address] [place], [place] [id number] [facility] 103 Mar, OBGYN [place] [id number] [facility] 103 Mar, Diabetes mellitus type II OBGYN [facility] 250.00 [place] [id number] [facility] 103 Mar, Menometrorrhagia 626.2 ; OBGYN [facility] FAMILY HX-BREAST MALIG [place], [place] [id number] V16.3 and FM HX OVARY MALIGNANCY V16.41 [facility] 103 Mar, OBGYN [place] [id number] [place] [facility] Feb, Menometrorrhagia 626.2 ; OBGYN Road [address] [place] [address], FAMILY HX-BREAST MALIG [place] [id number] V16.3 and FM HX OVARY MALIGNANCY V16.41 [facility] 103 January, Menometrorrhagia 626.2 O[place] [id number] [facility] 103 January, Menometrorrhagia 626.2 [place] [id number] [facility] 103 Dec, OBGYN [place] [id number] [facility] 103 Dec, OBGYN [place] [id number] [facility] [address] [place] [address] Dec, Menometrorrhagia 626.2 ; OBGYN Road [address] [place], URINARY INCONTINENCE NOS [place] [id number] 788.30 ; FAMILY HX-BREAST MALIG V16.3 and FM HX OVARY MALIGNANCY V16.41 [facility] OBGYN 103 Dec, OBGYN [place] [id number] [facility] 103 Dec, OBGYN [place] [id number] [address] Dec, Menometrorrhagia [address] [place], [place] [id number] [facility] 103 Dec, Menometrorrhagia 626.2 O[place]YN [place], [place] [id number] [facility] O[facility]YN 103 Dec, Menometrorrhagia 626.2 ; FM OBGYN [facility] HX OVARY MALIGNANCY V16.41 [place], [place] [id number] and IUD SURVEILLANCE V25.[address] Nov, ROUTINE MENTAL TELEPATHIST EXAMINATION OBGYN Road [address] [place], V72.31 ; Menometrorrhagia [place] [id number] 626.2 ; PAP SMEAR W/O MENTAL TELEPATHIST EXAM V76.2 ; SCREEN MAMMOGRAM NEC V76.12 ; FAMILY HX-BREAST MALIG V16.3 ; FM HX OVARY MALIGNANCY V16.41 and URINARY INCONTINENCE NOS 788.[address] Dec, FM HX OVARY MALIGNANCY OBGYN Road [address] [place], V16.41 and FAMILY HX-BREAST [place] [id number] MALIG V16.[address] Sep, FM HX OVARY MALIGNANCY OBGYN Road [address] [place], V16.41 and FAMILY HX-BREAST [place] [id number] MALIG V16.3 [facility] OBGYN 103 Sep, OBGYN [place] [id number] [facility] OBGYN 103 Aug, FM HX OVARY MALIGNANCY [facility] V16.41 and FAMILY HX-BREAST [place], [place] [id number] MALIG V16.3 IMMUNIZATIONS No Known Immunizations SOCIAL HISTORY Never Assessed REASON FOR REFERRAL FUNCTIONAL STATUS PLAN OF CARE Activity Details Pending Test MRIBRWWOBI VITAL SIGNS MEDICATIONS Unknown Medications PROCEDURES No Known procedures RESULTS No Results REASON FOR VISIT breast MRI oralia, NOV 12. [facility] Insurance [facility] Member Patient Patient Patient Patient Patient Subscriber Subscriber Subscriber Group Insurance Plan Plan Plan Plan ID Relationship Address Phone Name Date of ID Name Date of No Type Insurance Insurance Insurance Coverage to Subscriber Address Phone Name Dates Blue Cross [phone] Blue Cross self Susan 1965 [id number] Blue [id number] 89 [place] [employer] [place] [address] Excell[employer] [phone] Excellus self Susan 1965 [id number] Blue [id number] 89 [place] Cross[place] Shield [address] Shield Excellus [phone] Excellus self Susan 1965 [id number] Blue [id number] 89 [place] Shield [address] Shield [place] [phone] Excellus self Susan 1965 [id number] Blue 44554 89 [place] Cross/[place] Shield [address] Shield Blue [phone] Blue self Susan 1965 [id number] Cross/Blue 61954 16 Cross/Blue [place] [address] MEDICAL (GENERAL) HISTORY Type Description Date Medical [...]
[2019-10-25 19:06] VITALS: BP 120/66
--- NOTE | 2019-10-25 19:32 | UC ---
FLU HPI - HPI Summary HPI Summary: started [address], fever, body aches and cough. Is not getting any better, tried OTC cold meds with little relief - History of Current Complaint Chief Complaint: UCRespiratory Stated Complaint: FEVER Time Seen by Provider: 10/25/19 19:06 Hx Obtained From: Patient Hx Last Menstrual Period: Hysterectomy ?: No Onset/Duration: Sudden Onset Severity Currently: None Severity Initially: Mild Pain Intensity: 0 Associated Signs & Symptoms: Positive: Fever, Cough, Sore Throat - Allergy/Home Medications Allergies/Adverse Reactions: Allergies Allergy/AdvReac Type Severity Reaction Status Date / Time nickel Allergy Severe Hives/LIPS Verified 10/25/19 19:06 AND EYES SWELL Environmental Allergies Allergy Severe Eyes Uncoded 10/13/19 14:50 Itchy/Swollen/Red/Watery Home Medications: Home Medications Sertraline* [Zoloft*] 25 mg PO DAILY 10/25/19 [History Confirmed 10/25/19] PMH/Surg Hx/FS Hx/Imm Hx Previously Healthy: Yes - Endocrine History: Diabetes, Hypothyroidism Other History Of: Negative For: HIV, Hepatitis B, Hepatitis C - Surgical History Surgical History: Yes Surgery Procedure, Year, and Place: HYSTERECTOMY 2012 - Family History Known Family History: Positive: None - Social History Occupation: Employed Full-time Lives: With Family Alcohol Use: Occasionally Substance Use Type: None Smoking Status (MU): Never Smoked Tobacco - Immunization History Most Recent Tetanus Shot: not sure Review of Systems All Other Systems Reviewed And Are Negative: Yes Constitutional: Positive: Fever, Fatigue Skin: Positive: Negative Eyes: Positive: Negative ENT: Positive: Sore Throat Respiratory: Positive: Cough. Negative: Shortness Of Breath Cardiovascular: Positive: Negative Gastrointestinal: Positive: Vomiting, Diarrhea Neurological: Positive: Negative Psychological: Positive: Negative Is Patient Immunocompromised?: No Physical Exam Triage Information Reviewed: Yes Appearance: Well-Appearing, No Pain Distress, Obese Vital Signs: Initial Vital Signs Temp 99.4 F 10/25/19 19:02 Pulse 68 10/25/19 19:02 Resp 16 10/25/19 19:02 BP 120/66 10/25/19 19:02 Pulse Ox 100 10/25/19 19:02 Vital Signs Reviewed: Yes Eyes: Positive: Conjunctiva Clear ENT: Positive: Pharyngeal erythema, TMs normal. Negative: Nasal congestion, Sinus tenderness Neck exam: Normal Neck: Positive: Nontender, No Lymphadenopathy Respiratory Exam: Normal Respiratory: Positive: Lungs clear, Other: - no cough on exam Cardiovascular Exam: Normal Cardiovascular: Positive: RRR Abdominal Exam: Normal Neurological Exam: Normal Neurological: Positive: Alert Psychological Exam: Normal Skin Exam: Normal Skin: Negative: Rashes Flu Course/Dx - Differential Dx/Diagnosis Differential Diagnosis/HQI/PQRI: Influenza, Upper Respiratory Infection Provider Diagnosis: Influenza Discharge ED - Sign-Out/Discharge Documenting (check all that apply): Patient Departure All imaging exams completed and their final reports reviewed: No Studies - Discharge Plan Condition: Stable Disposition: HOME Patient Education Materials: Influenza (ED) Forms: *Work Release Referrals: Ira Melo [employer]THOTICS PROSTHETICS TECHNICIAN [Primary Care Provider] - 3 Days (if symptoms not improving) Additional Instructions: Rest and drink plenty of fluids use Tylenol and ibuprofen for fever and pain return if your symptoms worsen at any time - Billing Disposition and Condition Condition: STABLE Disposition: Home
[2019-10-25 19:34] LABS: Influenza B Molecular POSITIVE (Negative)
== END 2019-10-25 19:50 | disposition home or self-care (01) ==
LOC: UCEAST 18:58
DX: J11.1 Influenza due to unidentified influenza virus with other respiratory manifestations (principal); R11.10 Vomiting, unspecified; R19.7 Diarrhea, unspecified; E11.9 Type 2 diabetes mellitus without complications; Z91.09 Other allergy status, other than to drugs and biological substances
CPT/HCPCS: 87651; 99211; G0463